=== PATIENT | female | born 1960 ===

== ENCOUNTER 2017-08-10 07:43 | Emergency (ER) | payer OTHER ==
[~2017-08-10] VITALS: Ht 167.6 cm; Wt 115.2 kg
[2017-08-10] MEDS ORDERED: SYNTHROID150 MCG (07:59)
[2017-08-10] MEDS ORDERED: MEDROLPACK PO (10:21)
[2017-08-10] MEDS ORDERED: ULTRACET PO (10:21)
== END 2017-08-10 12:06 | disposition home or self-care (01) ==
LOC: ER 07:43
DX: M75.81 Other shoulder lesions, right shoulder (principal)

== ENCOUNTER 2019-12-17 15:52 | Emergency (ER) | payer OTHER ==
[~2019-12-17] VITALS: Ht 170.2 cm; Wt 98.0 kg
[~2019-12-17 15:52] MED LIST: MEDROLPACK PO; SYNTHROID150 MCG; ULTRACET PO
[2019-12-17] MEDS ORDERED: METFORMIN HCL500 M1 PO (16:13)
[2019-12-17] MEDS ORDERED: SYNTHROID125 MCG PO (16:13)
[2019-12-17] MEDS ORDERED: ROSUVASTATIN CA10 MG PO (16:13)
[2019-12-17] MEDS ORDERED: VITAMIN D31250 MCG PO (16:14)
[2019-12-17] MEDS ORDERED: METOCLOPRAMIDE10 M1 SL (18:39)
== END 2019-12-17 19:29 | disposition home or self-care (01) ==
LOC: ER 15:52
DX: R11.2 Nausea with vomiting, unspecified (principal); R19.7 Diarrhea, unspecified; R53.1 Weakness; Z03.818 Encounter for observation for suspected exposure to other biological agents ruled out

== ENCOUNTER 2021-08-29 09:39 | Emergency (ER) | payer OTHER ==
[~2021-08-29] VITALS: Ht 167.6 cm; Wt 95.3 kg
[~2021-08-29 09:39] MED LIST changes: +METFORMIN HCL500 M1 PO; +METOCLOPRAMIDE10 M1 SL; +ROSUVASTATIN CA10 MG PO; +SYNTHROID125 MCG PO; +VITAMIN D31250 MCG PO
== END 2021-08-29 17:34 | disposition home or self-care (01) ==
LOC: ER 09:39
DX: K52.9 Noninfective gastroenteritis and colitis, unspecified (principal); G43.909 Migraine, unspecified, not intractable, without status migrainosus; E03.9 Hypothyroidism, unspecified